=== PATIENT | female | born 1955 | race African-American/Black ===

== ENCOUNTER 2017-12-20 14:36 | Emergency (ER) | payer MEDICAID, OTHER ==
[2017-12-20] MEDS: ACETAMINOPHEN 500 MG TAB PO (19:19)
[2017-12-20] MEDS: KETOROLAC 30 MG INJ IM (19:22)
[2017-12-20 19:24] LABS: URINE BLOOD (Dip) POC Negative (NEGATIVE); URINE GLUCOSE (Dip) POC Negative (NEGATIVE); URINE KETONES (Dip) POC Negative (NEGATIVE); URINE LEUKOCYTE EST (Dip) POC Negative (NEGATIVE); URINE NITRITE (Dip) POC Negative (NEGATIVE); URINE TOTAL PROTEIN POC Negative (NEGATIVE)
[2017-12-20 19:24] LABS: URINE PH (Dip) POC 6.5 (5.0-8.5)
== END 2017-12-20 22:00 | disposition home or self-care (01) ==
LOC: FTE 14:36
DX: M47.894 Other spondylosis, thoracic region (principal); M46.96 Unspecified inflammatory spondylopathy, lumbar region
CPT/HCPCS: 72040; 72072; 72100; 81003; 96372; 99284-25